=== PATIENT | female | born 1935 | race Caucasian/White ===

== ENCOUNTER → 2017-03-02 | Outpatient (CLI) | payer MEDICARE ==
--- NOTE | ~2017-03-02 | MY11 ---
[facility] A Service of [facility] RADIOLOGY TEXT RESULTS PATIENT: RIMA SILVA LOCATION: [facility] : 35 UNIT #: [id number] AGE: [address]: Lizbeth Cook MD SEX: F ORDER DR: [id number] [place] [id number] MR#: [id number] Acc #: [id number] NAME: RIMA SILVA : 1935 SEX: F STUDY DATE/TIME: 03/02/2017 13:40 UNIT: [facility] ROOM: STUDY DESCRIPTION: MY Mammogram Screening Dig Jackson Attending Physician: Lizbeth Cook M.D. Referring Physician: Lizbeth Cook M.D. Ordering Physician: Lizbeth Cook M.D. Primary Care Physician: Lizbeth Cook M.D. MEDICAL IMAGING REPORT This report is preliminary unless electronic signature is present. EXAM Digital screening mammogram, 03/02/2017, [facility]. HISTORY 82-year-old woman, no risk elevation. Previous stereotactic-guided left breast biopsy. Annual screen. COMPARISON Mammograms date to 04/12/2006 with most recent 02/04/2016. TECHNIQUE Digital imaging of each breast was completed utilizing screening protocol. Review includes FDA-approved CAD device. FINDINGS Breast parenchyma is predominantly fatty replaced. Benign calcifications are noted in the upper central right breast. Image-guided biopsy marker stable mid inner left breast. There appears to be some of bilateral nipple inversion. There is no suspicious mass. I see no interval occurring microcalcifications and no architectural deformity. IMPRESSION Stable benign mammogram. Annual screening recommended. Patients over the age of 40 are entered into a reminder system with target due date for the next mammogram. A result letter will also be sent to the patient. BIRADS: 2 Benign finding. [facility] A Service [facility] RADIOLOGY TEXT RESULTS PATIENT: RIMA SILVA LOCATION: [facility] : 35 UNIT #: [id number] AGE: [address]: Lizbeth Cook MD SEX: F ORDER DR: Dictated by... Skip Mednia M.D. THIS IS AN ELECTRONICALLY VERIFIED REPORT Skip Medina M.D. at 03/04/2017 1:44 PM TRINIDAD/guido TD: 03/02/2017 17:27 JOB #: [id number] MEDICAL IMAGING REPORT Page 1 of 1
== END | disposition home or self-care (01) ==
LOC: SMAM 13:03
DX: Z12.31 Encounter for screening mammogram for malignant neoplasm of breast (principal); Z98.890 Other specified postprocedural states
CPT/HCPCS: G0202